=== PATIENT | female | born 1960 | race African-American/Black ===

== ENCOUNTER 2021-07-25 08:31 | Outpatient (CLI) | payer BC, SELFPAY ==
--- NOTE | ~2021-07-25 | MM_ITS ---
EXAMINATION: MM screening [facility], [place] BI w jose luis HISTORY: Screening TECHNIQUE: Craniocaudal and mediolateral oblique 3-D tomosynthesis images were obtained and synthetic 2-D images were generated. CAD analysis was submitted and interpreted. COMPARISON: Comparison to multiple prior studies sequentially, with oldest reviewed study dated 02/2012. BREAST PARENCHYMAL COMPOSITION: There are scattered areas of fibroglandular density. FINDINGS: There is no evidence of suspicious mass, calcification, or architectural distortion to sugg est malignancy in either breast. There has been no suspicious interval change. IMPRESSION: 1. No mammographic evidence of malignancy. 2. Recommend routine screening mammography in one year. BI-RADS Category 1: Negative Reviewed, dictated and finalized at location A.
== END 2021-07-25 08:32 | disposition home or self-care (01) ==
LOC: ANHIMG 08:33
PROVIDERS: PCP Family Medicine; Visit Provider Nurse Practitioner Obstetrics & Gynecology
DX: Z12.31 Encounter for screening mammogram for malignant neoplasm of breast (principal)
CPT/HCPCS: 77063; 77067

== ENCOUNTER 2022-09-05 00:12 | Day surgery (SDC) | payer BC, SELFPAY ==
[2022-09-01 08:52] VITALS: BMI 22.6
[2022-09-05 08:34] VITALS: BP 137/74; PULSE 64; RESP 16; TEMP 35.9; O2SAT 100
[2022-09-05] MEDS: LACTATED RINGERS 1,000 ML 150 ML IV CONT (08:47)
--- NOTE | 2022-09-05 08:50 | P.HP_ITS ---
History of Present Illness History of Present Illness Consent: Risks, benefits, and alternatives have been discussed and questions answered. Patient agrees to proceed with procedure. Chief complaint: neoplasm screening Narrative: Ac Hoyos is a 62 year old female Presents for screening colonoscopy. Patient's current weight appetite and bowel movements are normal. She denies abdominal pain. Patient has had no bleeding. Family history noncontributory. Patient has previous colonoscopy 10 years ago was unremarkable. Review of Systems Review of Systems: Review of systems noncontributory. [facility] Social History Social History Drinks per week: 2 Living arrangements: with family Spiritual care concerns: No Meds Home Medications and Allergies Home Medications Medication Instructions Recorded Confirmed Type escitalopram oxalate 10 mg tablet 10 mg PO DAILY 09/01/22 09/05/22 History Allergies Allergy/AdvReac Type Severity Reaction Status Date / Time Sulfa (Sulfonamide Allergy Intermediate rash, Verified 09/05/22 08:33 Antibiotics) itching Vital Signs Vital Signs - 24 hr 09/05/22 08:34 Temperature 96.6 F L Pulse Rate 64 Respiratory Rate 16 Blood Pressure 137/74 Pulse Oximetry 100 Oxygen Delivery Room Air Exam Narrative: Physical exam reveals patient to be alert. Vital signs stable. HEENT exam is unremarkable. Patient is anicteric. Lungs are clear to auscultation and percussion. Heart is without murmur or extra sounds. Abdomen bowel sounds are present soft nontender with no organomegaly. Digital external rectal exam is normal. Assessment and Plan Assessment and plan (1) Encounter for screening colonoscopy: Code(s): Z12.11 - Encounter for screening for malignant neoplasm of colon Status: Acute Assessment and Plan: Patient presents today for screening colonoscopy. She appears to be at average risk for colon polyps. Further recommendations may be given after endoscopy.
--- NOTE | 2022-09-05 09:05 | P.PNAN_ITS ---
Anes - Initial Pre Proc Eval Procedure: Operation Date: 09/05/22 09:30 Proposed Procedures p Screening Colonoscopy - Juan Francisco Asher MD Date/Time: 09/05/22 09:05 Surgeon: Juan Francisco Asher MD Pre Op Diagnosis: neoplasm screening Patient Data Age: 62 Gender: F Height: 1.63 m Weight: 60.1 kg Last Vital Signs Temp 96.6 F L 09/05/22 08:34 Pulse 64 09/05/22 08:34 Resp 16 09/05/22 08:34 BP 137/74 09/05/22 08:34 Pulse Ox 100 09/05/22 08:34 O2 Del Method Room Air 09/05/22 08:34 Allergies Allergy/AdvReac Type Severity Reaction Status Date / Time Sulfa (Sulfonamide Allergy Intermediate rash, Verified 09/05/22 08:33 Antibiotics) itching Home Medications Medication Instructions Recorded Confirmed Type escitalopram oxalate 10 mg tablet 10 mg PO DAILY 09/01/22 09/05/22 History Patient hx anesthesia problems: none Family hx anesthesia problems: none Results Review: All pre-operative results and documents have been reviewed as part of the pre- operative evaluation. PMFSH Social History Social History Drinks per week: 2 Living arrangements: with family Spiritual care concerns: No Anes - Eval Final PreProcedure Day of Procedure 09/05/22 09:05 Patient weight: normal Heart: regular rate and rhythm Lungs: clear to auscultation Airway: Mallampati scale class II Neurological: alert and oriented Last oral intake: >/= 8 hours ASA classification: II Emergent: no Anesthetic plan: proceed Anesthesia type and monitoring: general GIVS and standard monitoring Results Review: All pre-operative results and documents have been reviewed as part of the pre-operative evaluation. Informed Consent: The patient's anesthetic plan and its attendant risks and benefits were discussed with the patient/family/POA. Questions were solicited and answers provided to the satisfaction of the patient/family/POA.
[2022-09-05 09:36] VITALS: BP 81/41; PULSE 64; RESP 23; O2SAT 98
[2022-09-05 09:46] VITALS: BP 129/83; PULSE 61; RESP 14; O2SAT 98
[2022-09-05 09:56] VITALS: BP 127/82; PULSE 67; RESP 14; O2SAT 100
== END 2022-09-05 10:10 | disposition home or self-care (01) ==
PROVIDERS: PCP Family Medicine; Visit Provider Internal Medicine Gastroenterology
PROC: 0DJD8ZZ Inspection of Lower Intestinal Tract, Via Natural or Artificial Opening Endoscopic (ICD-10-PCS; CPT 45378; principal; 2022-09-05 09:30)
DX: Z12.11 Encounter for screening for malignant neoplasm of colon (principal)
CPT/HCPCS: 45378; J2704; J7120

== ENCOUNTER 2023-11-27 10:28 | Outpatient (CLI) | payer BC, SELFPAY ==
--- NOTE | ~2023-11-27 | MM_ITS ---
EXAMINATION: MM screening [facility] BI w jose luis HISTORY: Screening mammogram TECHNIQUE: Craniocaudal and mediolateral oblique 3-D tomosynthesis images were obtained and synthetic 2-D images were generated. CAD analysis was submitted and interpreted. COMPARISON: 07/2021, 07/09/2018 bilateral screening mammogram examinations BREAST PARENCHYMAL COMPOSITION: The breasts are heterogeneously dense, which may obscure small masses . FINDINGS: There is asymmetric interval increased density in the anterior inner aspect of the mid late ral left breast. Diagnostic left mammogram and left breast ultrasound examination are recommended. Otherwise there is no evidence of suspicious mass, calcification, or architectural distortion to sugg est malignancy in either breast. There has been no other suspicious interval change. IMPRESSION: 1. Interval mass density suggested in the anterior aspect of the inner portion of the outer mid left breast 2. Diagnostic left mammogram and left breast ultrasound examination are recommended BI-RADS Category 0: Incomplete: Needs additional imaging evaluation. Reviewed, dictated and finalized at location A. [employer] SAL[employer] H[employer]/HOSTESS IMPRESSION: 1. Interval mass density suggested in the anterior aspect of the inner portion of the outer mid left breast 2. Diagnostic left mammogram and left breast ultrasound examination are recomme nded BI-RADS Category 0: Incomplete: Needs additional imaging evaluation.
== END 2023-11-27 10:29 ==
LOC: MICIMG 10:29
PROVIDERS: PCP Family Medicine; Visit Provider Nurse Practitioner
DX: Z12.31 Encounter for screening mammogram for malignant neoplasm of breast (principal); R92.8 Other abnormal and inconclusive findings on diagnostic imaging of breast
CPT/HCPCS: 77063; 77067

== ENCOUNTER 2024-08-10 09:25 | Outpatient (CLI) | payer BC, SELFPAY ==
--- NOTE | ~2024-08-10 | MMUS_ITS ---
EXAMINATION: MM diagnostic [facility] LT w jose luis, US breast LT limited HISTORY: Possible left breast mass TECHNIQUE: Additional 3-D tomosynthesis images of the left breast were performed and synthetic 2-D im ages were generated. CAD analysis was submitted and interpreted. High resolution limited left breast ultrasound was performed. COMPARISON: 324, 07/25/2021 BREAST PARENCHYMAL COMPOSITION:Dense: The breasts are heterogeneously dense, which may obscure small masses. FINDINGS: MAMMOGRAPHIC FINDINGS: Suspected subtle low-density persistent mass in the left subareolar region. ULTRASOUND: At the 3:00 position left breast, near the nipple, there is a 1.1 x 0.7 x 1.0 cm parallel, homogeneou sly hypoechoic circumscribed mass. IMPRESSION: 1.1 x 0.7 x 1.0 cm probable benign mass at the 3:00 position left breast, as detailed above. Six-mon follow-up ultrasound recommended to reassess. BI-RADS category 3, probably benign findings. Reviewed, dictated and finalized at location M. PHONE ANSWERER IMPRESSION: 1.1 x 0.7 x 1.0 cm probable benign mass at the 3:00 position left breast, as d etailed above. Six-month follow-up ultrasound recommended to reassess. BI-RADS category 3, probably benign findings.
== END 2024-08-10 09:26 | disposition home or self-care (01) ==
PROVIDERS: PCP Family Medicine; Visit Provider Nurse Practitioner
DX: R92.2 Inconclusive mammogram (principal)
CPT/HCPCS: 76642; 77061; 77065; G0279

== ENCOUNTER 2025-08-04 10:22 | Outpatient (CLI) | payer BC, SELFPAY ==
--- NOTE | ~2025-08-04 | MMUS_ITS ---
EXAMINATION: MM diagnostic [facility] BI w jose luis, US breast LT limited HISTORY: Follow-up left breast mass TECHNIQUE: Additional 3-D tomosynthesis images of the breasts were performed and synthetic 2-D images were generated. CAD analysis was submitted and interpreted. High resolution Limited left breast ultrasound was performed. COMPARISON: Comparison to multiple prior studies sequentially, with oldest reviewed study dated 07/25/2021. BREAST PARENCHYMAL COMPOSITION: Dense: The breasts are heterogeneously dense, which may obscure small masses FINDINGS: MAMMOGRAPHIC FINDINGS: The right breast is stable without evidence for malignancy. There is an obscured mass in the lateral aspect of the left breast, anterior third. ULTRASOUND: Limited left breast ultrasound: At 3:00 near the nipple there is an oval hypoechoic mass measuring 10 x 8 x 6 mm compared with 11 x 10 x 7 mm on prior examination. No significant posterior features or internal vascularity. Parallel orientation. IMPRESSION: 1. Slightly decreased size of oval hypoechoic left breast mass at 3:00 near the nipple, likely benign. 2. Recommend 6 month follow-up Limited left breast ultrasound BI-RADS category 3, probably benign findings. Reviewed, dictated and finalized at location B. TIONAL REHABILITATION SPECIALIST IMPRESSION: 1. Slightly decreased size of oval hypoechoic left breast mass at 3:00 near the nipple, likely benign. 2. Recommend 6 month follow-up Limited left breast ultrasound BI-RADS category 3, probably benign findings.
== END 2025-08-04 10:23 | disposition home or self-care (01) ==
LOC: ANHFOHIMG 10:25
PROVIDERS: PCP Family Medicine; Visit Provider Nurse Practitioner
DX: N63.42 Unspecified lump in left breast, subareolar (principal)
CPT/HCPCS: 76642; 77062; 77066; G0279